=== PATIENT | male | born 1960 | race African-American/Black ===

== ENCOUNTER 2016-09-14 11:45 | Inpatient (IN) | payer OTHER ==
[2016-09-14 13:19] VITALS: BMI 24.5
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
[2016-09-14] MEDS ORDERED: MAGNESIUM CITRATE 300 ML BOTTLE PO PRN (15:35)
[2016-09-14] MEDS ORDERED: P-EPHED 60MG/TRIPROLIDI 2.5MG TABLET PO PRN (15:35)
[2016-09-14] MEDS ORDERED: ACETAMINOPHEN 325 MG TABLET (FP) PO PRN (15:35)
[2016-09-14] MEDS ORDERED: NICOTINE POLACRILEX 2 MG GUM BC PRN (15:35)
[2016-09-14] MEDS ORDERED: hydrOXYzine PAMOATE 25 MG CAPSULE (FP) PO PRN (15:35)
[2016-09-14] MEDS ORDERED: MENTHOL/PHENOL 1 EACH UD MM PRN (15:35)
[2016-09-14] MEDS ORDERED: guaiFENesin/D-METHORPHAN HB 10 ML UNIT-DOSE CUPS PO PRN (15:35)
[2016-09-14] MEDS ORDERED: MAG HYDROX/AL HYDROX/SIMETH 30 ML UNIT-DOSE CUP PO PRN (15:35)
[2016-09-14] MEDS ORDERED: IBUPROFEN 400 MG TABLET (FP) PO PRN (15:35)
[2016-09-14] MEDS ORDERED: chlordiazePOXIDE HCL 25 MG CAPSULE PO PRN (15:35)
[2016-09-14] MEDS ORDERED: MAGNESIUM HYDROX 2400MG/30ML ORAL SUSPENSION 30 ML CUP PO PRN (15:35)
[2016-09-14] MEDS ORDERED: LOPERAMIDE HCL 2 MG CAPSULE PO PRN (15:35)
[2016-09-14 16:57] LABS: URINE APPEARANCE CLEAR; URINE BILIRUBIN NEGATIVE (NEGATIVE); URINE BLOOD NEGATIVE (NEGATIVE); URINE COLOR STRAW; URINE GLUCOSE (UA) NEGATIVE (NEGATIVE); URINE KETONE NEGATIVE (NEGATIVE); URINE LEUK ESTERASE NEGATIVE (NEGATIVE); URINE NITRITE NEGATIVE (NEGATIVE); URINE PROTEIN NEGATIVE (NEGATIVE); URINE UROBILINOGEN NEGATIVE E.U./dl (0.2-1.0)
[2016-09-14] MEDS: chlordiazePOXIDE HCL 25 MG CAPSULE PO SCH ×2 (17:02→22:13)
[2016-09-14] MEDS: NICOTINE 14 MG/24 HOURS TOPICAL PATCH TD SCH (17:02)
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
[2016-09-14] MEDS ORDERED: cloNIDine HCL 0.1 MG TABLET PO PRN (17:18)
[2016-09-14 17:42] LABS: ALBUMIN 4.5 g/dl (3.4-5.0); ANION GAP 9 (8-16); CALCIUM 9.1 mg/dL (8.5-10.1); CO2 27 mmol/L (21-32); GLUCOSE,RANDOM 88 mg/dL (74-106)
[2016-09-14 17:47] LABS: ALK PHOS 105 U/L (45-117); BILIRUBIN,TOTAL 0.3 mg/dL (0.2-1.0); COCKROFT - GAULT 96.53; CREATININE 1.1 mg/dL (0.7-1.3); SGOT/AST 21 U/L (15-37); SGPT/ALT 21 U/L (12-78); TOT PROT 7.7 g/dl (6.4-8.2)
[2016-09-14 18:41] LABS: MCH 31.4 pg (25.7-33.7); MCHC 32.8 g/dl (32.0-35.9); MEAN CELL VOLUME 95.8 fl (80-96); MEAN PLT VOLUME 8.5 fl (7.5-11.1); PLATELET COUNT 313 K/MM3 (134-434); RDW 15.1 % (11.9-15.9); WHITE BLOOD COUNT 10.4 K/mm3 (4.0-10.0)
[2016-09-14] MEDS: GABAPENTIN 300 MG CAPSULE (FP) PO SCH (22:13)
[2016-09-14] MEDS: NAPROXEN 500 MG TABLET (FP) PO SCH (22:13)
[2016-09-14] MEDS: QUEtiapine FUMARATE 100 MG TABLET (FP) PO SCH (22:13)
[2016-09-14] MEDS: diphenhydrAMINE HCL 50 MG CAPSULE PO PRN (22:13)
[2016-09-14] MEDS: THIAMINE HCL 100 MG TABLET (FP) PO SCH (22:13)
[2016-09-15] MEDS: chlordiazePOXIDE HCL 25 MG CAPSULE PO SCH ×4 (05:53→22:14)
--- NOTE | 2016-09-15 10:11 | PN ---
S CIWA - CIWA Score Nausea/Vomitin-No Nausea/No Vomiting Muscle Tremors: 4-Moderate,w/Arms Extend Anxiety: 4-Mod. Anxious/Guarded Agitation: 3 Paroxysmal Sweats: 3 Orientation: 0-Oriented Tacttile Disturbances: 0-None Auditory Disturbances: 0-None Visual Disturbances: 0-None Headache: 0-None Present CIWA-Ar Total Score: 14 BHS Progress Note (SOAP) Subjective: Anxiety,tremors,sweating,interrupted sleep,restless. Objective: 09/15/16 10:10 Vital Signs - 8 hr 09/15/16 09/15/16 09/15/16 03:24 06:11 09:36 Temperature 96.0 F L 98.4 F Pulse Rate 40 L 59 L Respiratory 18 18 18 Rate Blood Pressure 133/76 137/80 Laboratory Tests 09/14/16 09/14/16 09/14/16 14:00 14:00 14:00 WBC 10.4 H D RBC 5.16 Hgb 16.2 Hct 49.5 H MCV 95.8 MCHC 32.8 RDW 15.1 Plt Count 313 D MPV 8.5 Sodium 140 Potassium 4.6 D Chloride 104 Carbon Dioxide 27 Anion Gap 9 BUN 13 D Creatinine 1.1 Creat Clearance w eGFR > 60 Random Glucose 88 D Calcium 9.1 Total Bilirubin 0.3 D AST 21 D ALT 21 Alkaline Phosphatase 105 Total Protein 7.7 Albumin 4.5 Urine Color Straw Urine Appearance Clear Urine pH 6.0 Ur Specific [place] 1.013 Urine Protein Negative Urine Glucose (UA) Negative Urine Ketones Negative Urine Blood Negative Urine Nitrite Negative Urine Bilirubin Negative Urine Urobilinogen Negative Ur Leukocyte Esterase Negative labs noted Assessment: 09/15/16 10:11 Withdrawal sx. Plan: Continue detox
[2016-09-15] MEDS: GABAPENTIN 300 MG CAPSULE (FP) PO SCH ×2 (10:23→22:14)
[2016-09-15] MEDS: PRENATAL VITAMINS W/ FOLIC ACID TABLET (FP) PO SCH (10:23)
[2016-09-15] MEDS: NAPROXEN 500 MG TABLET (FP) PO SCH ×2 (10:24→22:14)
[2016-09-15] MEDS: NICOTINE 14 MG/24 HOURS TOPICAL PATCH TD SCH (10:26)
[2016-09-15 11:15] LABS: HIV 1 & 2 AB NEGATIVE; HIV 1 AGp24 NEGATIVE
[2016-09-15] MEDS: QUEtiapine FUMARATE 100 MG TABLET (FP) PO SCH (22:14)
[2016-09-15] MEDS: THIAMINE HCL 100 MG TABLET (FP) PO SCH (22:14)
[2016-09-15] MEDS: diphenhydrAMINE HCL 50 MG CAPSULE PO PRN (22:14)
--- NOTE | 2016-09-15 23:08 | EKG ---
Test Reason : Blood Pressure : / mmHG Vent. Rate : 053 BPM Atrial Rate : 053 BPM P-R Int : 158 ms QRS Dur : 086 ms QT Int : 442 ms P-R-T Axes : 071 039 019 degrees QTc Int : 414 ms SINUS BRADYCARDIA POSSIBLE LEFT ATRIAL ENLARGEMENT LEFT VENTRICULAR HYPERTROPHY ABNORMAL ECG NO PREVIOUS ECGS AVAILABLE Confirmed by DIANE GOMES, APOORVA ([id number]) on 09/15/2016 11:07:59 PM Referred By: Chris Wong Confirmed By:APOORVA CONTRERAS MD
[2016-09-16] MEDS: chlordiazePOXIDE HCL 25 MG CAPSULE PO SCH ×2 (05:51→10:20)
[2016-09-16] MEDS: NICOTINE 14 MG/24 HOURS TOPICAL PATCH TD SCH (10:20)
[2016-09-16] MEDS: PRENATAL VITAMINS W/ FOLIC ACID TABLET (FP) PO SCH (10:20)
[2016-09-16] MEDS: NAPROXEN 500 MG TABLET (FP) PO SCH ×2 (10:20→22:13)
[2016-09-16] MEDS: GABAPENTIN 300 MG CAPSULE (FP) PO SCH ×2 (10:20→22:13)
--- NOTE | 2016-09-16 14:33 | PN ---
[facility] CIWA - CIWA Score Nausea/Vomitin-No Nausea/No Vomiting Muscle Tremors: 3 Anxiety: 3 Agitation: 4-Moderately Restless Paroxysmal Sweats: 3 Orientation: 0-Oriented Tacttile Disturbances: 0-None Auditory Disturbances: 0-None Visual Disturbances: 0-None Headache: 0-None Present CIWA-Ar Total Score: 13 BHS Progress Note (SOAP) Subjective: Anxiety,tremors,sweating,interrupted sleep,restless. Objective: 09/16/16 14:32 Vital Signs - 8 hr 09/16/16 09/16/16 09/16/16 06:34 09:18 13:19 Temperature 95.7 F L 98.6 F 97.1 F L Pulse Rate 49 L 80 95 H Respiratory 18 20 20 Rate Blood Pressure 142/96 139/92 177/91 09/16/16 13:22 Temperature Pulse Rate Respiratory Rate Blood Pressure 151/89 Laboratory Last Values WBC 10.4 K/mm3 (4.0-10.0) H D 09/14/16 14:00 RBC 5.16 M/mm3 (4.00-5.60) 09/14/16 14:00 Hgb 16.2 GM/dL (11.7-16.9) 09/14/16 14:00 Hct 49.5 % (35.4-49) H 09/14/16 14:00 MCV 95.8 fl (80-96) 09/14/16 14:00 MCHC 32.8 g/dl (32.0-35.9) 09/14/16 14:00 RDW 15.1 % (11.9-15.9) 09/14/16 14:00 Plt Count 313 K/MM3 (134-434) D 09/14/16 14:00 MPV 8.5 fl (7.5-11.1) 09/14/16 14:00 Sodium 140 mmol/L (136-145) 09/14/16 14:00 Potassium 4.6 mmol/L (3.5-5.1) D 09/14/16 14:00 Chloride 104 mmol/L (98-107) 09/14/16 14:00 Carbon Dioxide 27 mmol/L (21-32) 09/14/16 14:00 Anion Gap 9 (8-16) 09/14/16 14:00 BUN 13 mg/dL (7-18) D 09/14/16 14:00 Creatinine 1.1 mg/dL (0.7-1.3) 09/14/16 14:00 Creat Clearance w eGFR > 60 (>60) 09/14/16 14:00 Random Glucose 88 mg/dL (74-106) D 09/14/16 14:00 Calcium 9.1 mg/dL (8.5-10.1) 09/14/16 14:00 Total Bilirubin 0.3 mg/dL (0.2-1.0) D 09/14/16 14:00 AST 21 U/L (15-37) D 09/14/16 14:00 ALT 21 U/L (12-78) 09/14/16 14:00 Alkaline Phosphatase 105 U/L (45-117) 09/14/16 14:00 Total Protein 7.7 g/dl (6.4-8.2) 09/14/16 14:00 Albumin 4.5 g/dl (3.4-5.0) 09/14/16 14:00 Urine Color Straw 09/14/16 14:00 Urine Appearance Clear 09/14/16 14:00 Urine pH 6.0 (5.0-8.0) 09/14/16 14:00 Ur Specific [place] 1.013 (1.001-1.035) 09/14/16 14:00 Urine Protein Negative (NEGATIVE) 09/14/16 14:00 Urine Glucose (UA) Negative (NEGATIVE) 09/14/16 14:00 Urine Ketones Negative (NEGATIVE) 09/14/16 14:00 Urine Blood Negative (NEGATIVE) 09/14/16 14:00 Urine Nitrite Negative (NEGATIVE) 09/14/16 14:00 Urine Bilirubin Negative (NEGATIVE) 09/14/16 14:00 Urine Urobilinogen Negative E.U./dl (0.2-1.0) 09/14/16 14:00 Ur Leukocyte Esterase Negative (NEGATIVE) 09/14/16 14:00 RPR Titer Nonreactive (NONREACTIVE) 09/14/16 14:00 HIV 1&2 Antibody Screen Negative 09/14/16 06:00 HIV P24 Antigen Negative 09/14/16 06:00 labs noted Assessment: 09/16/16 14:33 Withdrawal sx. Plan: Continue detox
[2016-09-16] MEDS: chlordiazePOXIDE 5 MG CAPSULE PO SCH ×2 (17:15→22:13)
[2016-09-16] MEDS: THIAMINE HCL 100 MG TABLET (FP) PO SCH (22:12)
[2016-09-16] MEDS: QUEtiapine FUMARATE 100 MG TABLET (FP) PO SCH (22:13)
[2016-09-16] MEDS: diphenhydrAMINE HCL 50 MG CAPSULE PO PRN (22:13)
[2016-09-17] MEDS: chlordiazePOXIDE 5 MG CAPSULE PO SCH ×2 (05:31→10:24)
[2016-09-17] MEDS: PRENATAL VITAMINS W/ FOLIC ACID TABLET (FP) PO SCH (10:23)
[2016-09-17] MEDS: NAPROXEN 500 MG TABLET (FP) PO SCH ×2 (10:24→22:23)
[2016-09-17] MEDS: NICOTINE 14 MG/24 HOURS TOPICAL PATCH TD SCH (10:24)
[2016-09-17] MEDS: GABAPENTIN 300 MG CAPSULE (FP) PO SCH ×2 (10:24→22:23)
--- NOTE | 2016-09-17 11:07 | PN ---
BHS Progress Note (SOAP) Subjective: Sweating,interrupted sleep,restless. Objective: 09/17/16 11:05 Vital Signs - 8 hr 09/17/16 09/17/16 03:23 06:19 Temperature 95.9 F L Pulse Rate 68 Respiratory 18 16 Rate Blood Pressure 93/59 Laboratory Tests 09/14/16 09/14/16 09/14/16 06:00 14:00 14:00 WBC 10.4 H D RBC 5.16 Hgb 16.2 Hct 49.5 H MCV 95.8 MCHC 32.8 RDW 15.1 Plt Count 313 D MPV 8.5 Sodium 140 Potassium 4.6 D Chloride 104 Carbon Dioxide 27 Anion Gap 9 BUN 13 D Creatinine 1.1 Creat Clearance w eGFR > 60 Random Glucose 88 D Calcium 9.1 Total Bilirubin 0.3 D AST 21 D ALT 21 Alkaline Phosphatase 105 Total Protein 7.7 Albumin 4.5 Urine Color Urine Appearance Urine pH Ur Specific [place] Urine Protein Urine Glucose (UA) Urine Ketones Urine Blood Urine Nitrite Urine Bilirubin Urine Urobilinogen Ur Leukocyte Esterase RPR Titer HIV 1&2 Antibody Screen Negative HIV P24 Antigen Negative 09/14/16 09/14/16 14:00 14:00 WBC RBC Hgb Hct MCV MCHC RDW Plt Count MPV Sodium Potassium Chloride Carbon Dioxide Anion Gap BUN Creatinine Creat Clearance w eGFR Random Glucose Calcium Total Bilirubin AST ALT Alkaline Phosphatase Total Protein Albumin Urine Color Straw Urine Appearance Clear Urine pH 6.0 Ur Specific [place] 1.013 Urine Protein Negative Urine Glucose (UA) Negative Urine Ketones Negative Urine Blood Negative Urine Nitrite Negative Urine Bilirubin Negative Urine Urobilinogen Negative Ur Leukocyte Esterase Negative RPR Titer Nonreactive HIV 1&2 Antibody Screen HIV P24 Antigen labs noted Assessment: 09/17/16 11:06 Withdrawal sx. Plan: Continue detox
[2016-09-17] MEDS: chlordiazePOXIDE HCL 10 MG CAPSULE PO SCH ×2 (17:19→22:23)
[2016-09-17] MEDS: THIAMINE HCL 100 MG TABLET (FP) PO SCH (22:23)
[2016-09-17] MEDS: diphenhydrAMINE HCL 50 MG CAPSULE PO PRN (22:23)
[2016-09-17] MEDS: QUEtiapine FUMARATE 100 MG TABLET (FP) PO SCH (22:23)
[2016-09-18] MEDS: chlordiazePOXIDE HCL 10 MG CAPSULE PO SCH ×2 (05:30→10:59)
[2016-09-18] MEDS: NAPROXEN 500 MG TABLET (FP) PO SCH (09:07)
[2016-09-18] MEDS: GABAPENTIN 300 MG CAPSULE (FP) PO SCH (09:07)
[2016-09-18 10:32] VITALS: BP 176/110; PULSE 56; TEMP 96
[2016-09-18] MEDS: NICOTINE 14 MG/24 HOURS TOPICAL PATCH TD SCH (10:59)
[2016-09-18] MEDS: PRENATAL VITAMINS W/ FOLIC ACID TABLET (FP) PO SCH (10:59)
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
== END 2016-09-18 11:24 | disposition other institution (70) | DRG 774 ==
LOC: YASAS 11:45 → Y3N 14:58
PROVIDERS: ADMIT Internal Medicine; ATTEND Internal Medicine
PROC: HZ2ZZZZ Detoxification Services for Substance Abuse Treatment (ICD-10-PCS; principal; 2016-09-18)
DX: F10.230 Alcohol dependence with withdrawal, uncomplicated (principal); F14.20 Cocaine dependence, uncomplicated; F12.20 Cannabis dependence, uncomplicated; F17.213 Nicotine dependence, cigarettes, with withdrawal; M54.5 Low back pain; G89.29 Other chronic pain; R76.11 Nonspecific reaction to tuberculin skin test without active tuberculosis; G47.00 Insomnia, unspecified; Z87.828 Personal history of other (healed) physical injury and trauma
CPT/HCPCS: 36415; 71020-TC; 80053; 81003; 85027; 86593; 87389; 93005; 93010

== ENCOUNTER 2016-09-18 11:28 | Inpatient (IN) | payer OTHER ==
[2016-09-18] MEDS ORDERED: MAGNESIUM CITRATE 300 ML BOTTLE PO PRN (12:15)
[2016-09-18] MEDS ORDERED: hydrOXYzine PAMOATE 50 MG CAPSULE (FP) PO PRN (12:15)
[2016-09-18] MEDS ORDERED: MENTHOL/PHENOL 1 EACH UD MM PRN (12:15)
[2016-09-18] MEDS ORDERED: guaiFENesin/D-METHORPHAN HB 10 ML UNIT-DOSE CUPS PO PRN (12:15)
[2016-09-18] MEDS ORDERED: LOPERAMIDE HCL 2 MG CAPSULE PO PRN (12:15)
[2016-09-18] MEDS ORDERED: MAG HYDROX/AL HYDROX/SIMETH 30 ML UNIT-DOSE CUP PO PRN (12:15)
[2016-09-18] MEDS ORDERED: P-EPHED 60MG/TRIPROLIDI 2.5MG TABLET PO PRN (12:15)
[2016-09-18] MEDS ORDERED: MAGNESIUM HYDROX 2400MG/30ML ORAL SUSPENSION 30 ML CUP PO PRN (12:15)
--- NOTE | 2016-09-18 12:19 | HP ---
[facility] Rehab Assess/Revision - Admission History Ad[facility]hab [facility] Date of Admission to Rehab: 09/18/16 - Findings Detox History & Physical reviewed: Yes Concur with findings: Yes Comments/Additional Findings: for rehab as protocol
[2016-09-18 12:27] VITALS: BMI 25.6
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
[2016-09-18] MEDS ORDERED: cloNIDine HCL 0.1 MG TABLET PO ONE (20:52)
[2016-09-18] MEDS: QUEtiapine FUMARATE 100 MG TABLET (FP) PO SCH (21:36)
[2016-09-18] MEDS: GABAPENTIN 300 MG CAPSULE (FP) PO SCH (21:36)
[2016-09-18] MEDS: THIAMINE HCL 100 MG TABLET (FP) PO SCH (21:37)
[2016-09-18] MEDS: diphenhydrAMINE HCL 50 MG CAPSULE PO PRN (21:37)
[2016-09-19] MEDS: GABAPENTIN 300 MG CAPSULE (FP) PO SCH ×2 (10:21→21:57)
[2016-09-19] MEDS: PRENATAL VITAMINS W/ FOLIC ACID TABLET (FP) PO SCH (10:21)
[2016-09-19] MEDS: THIAMINE HCL 100 MG TABLET (FP) PO SCH (21:56)
[2016-09-19] MEDS: QUEtiapine FUMARATE 100 MG TABLET (FP) PO SCH (21:57)
[2016-09-19] MEDS: diphenhydrAMINE HCL 50 MG CAPSULE PO PRN (21:57)
[2016-09-20] MEDS: PRENATAL VITAMINS W/ FOLIC ACID TABLET (FP) PO SCH (09:58)
[2016-09-20] MEDS: GABAPENTIN 300 MG CAPSULE (FP) PO SCH ×2 (09:59→21:54)
[2016-09-20] MEDS: QUEtiapine FUMARATE 100 MG TABLET (FP) PO SCH (21:54)
[2016-09-20] MEDS: THIAMINE HCL 100 MG TABLET (FP) PO SCH (21:54)
[2016-09-20] MEDS: diphenhydrAMINE HCL 50 MG CAPSULE PO PRN (21:55)
[2016-09-21] MEDS: GABAPENTIN 300 MG CAPSULE (FP) PO SCH ×2 (10:15→21:34)
[2016-09-21] MEDS: PRENATAL VITAMINS W/ FOLIC ACID TABLET (FP) PO SCH (10:15)
[2016-09-21] MEDS: THIAMINE HCL 100 MG TABLET (FP) PO SCH (21:34)
[2016-09-21] MEDS: QUEtiapine FUMARATE 100 MG TABLET (FP) PO SCH (21:34)
[2016-09-21] MEDS: diphenhydrAMINE HCL 50 MG CAPSULE PO PRN (21:35)
[2016-09-21] MEDS ORDERED: cloNIDine HCL 0.1 MG TABLET PO PRN (21:40)
[2016-09-22] MEDS: GABAPENTIN 300 MG CAPSULE (FP) PO SCH ×2 (10:07→22:01)
[2016-09-22] MEDS: PRENATAL VITAMINS W/ FOLIC ACID TABLET (FP) PO SCH (10:07)
[2016-09-22] MEDS: diphenhydrAMINE HCL 50 MG CAPSULE PO PRN (22:01)
[2016-09-22] MEDS: QUEtiapine FUMARATE 100 MG TABLET (FP) PO SCH (22:01)
[2016-09-22] MEDS: THIAMINE HCL 100 MG TABLET (FP) PO SCH (22:01)
[2016-09-23] MEDS: PRENATAL VITAMINS W/ FOLIC ACID TABLET (FP) PO SCH (09:58)
[2016-09-23] MEDS: GABAPENTIN 300 MG CAPSULE (FP) PO SCH ×2 (09:58→21:57)
[2016-09-23] MEDS: THIAMINE HCL 100 MG TABLET (FP) PO SCH (21:57)
[2016-09-23] MEDS: QUEtiapine FUMARATE 100 MG TABLET (FP) PO SCH (21:57)
[2016-09-23] MEDS: diphenhydrAMINE HCL 50 MG CAPSULE PO PRN (21:58)
[2016-09-23] MEDS ORDERED: PT OWN MED DRAWER 7, Y5N ONE (23:57)
[2016-09-24] MEDS: IBUPROFEN 400 MG TABLET (FP) PO PRN (06:50)
[2016-09-24] MEDS: GABAPENTIN 300 MG CAPSULE (FP) PO SCH ×2 (10:01→21:37)
[2016-09-24] MEDS: PRENATAL VITAMINS W/ FOLIC ACID TABLET (FP) PO SCH (10:01)
[2016-09-24] MEDS: diphenhydrAMINE HCL 50 MG CAPSULE PO PRN (21:37)
[2016-09-24] MEDS: THIAMINE HCL 100 MG TABLET (FP) PO SCH (21:37)
[2016-09-24] MEDS: QUEtiapine FUMARATE 100 MG TABLET (FP) PO SCH (21:37)
[2016-09-25] MEDS: IBUPROFEN 400 MG TABLET (FP) PO PRN ×2 (05:59→20:26)
[2016-09-25] MEDS: GABAPENTIN 300 MG CAPSULE (FP) PO SCH ×2 (10:32→21:55)
[2016-09-25] MEDS: PRENATAL VITAMINS W/ FOLIC ACID TABLET (FP) PO SCH (10:32)
[2016-09-25] MEDS: THIAMINE HCL 100 MG TABLET (FP) PO SCH (21:54)
[2016-09-25] MEDS: QUEtiapine FUMARATE 100 MG TABLET (FP) PO SCH (21:54)
[2016-09-25] MEDS: diphenhydrAMINE HCL 50 MG CAPSULE PO PRN (21:56)
[2016-09-25] MEDS: ACETAMINOPHEN 325 MG TABLET (FP) PO PRN (21:56)
[2016-09-26] MEDS: IBUPROFEN 400 MG TABLET (FP) PO PRN ×2 (10:16→21:48)
[2016-09-26] MEDS: GABAPENTIN 300 MG CAPSULE (FP) PO SCH ×2 (10:16→21:48)
[2016-09-26] MEDS: PRENATAL VITAMINS W/ FOLIC ACID TABLET (FP) PO SCH (10:16)
[2016-09-26] MEDS: ACETAMINOPHEN 325 MG TABLET (FP) PO PRN (14:58)
[2016-09-26] MEDS: diphenhydrAMINE HCL 50 MG CAPSULE PO PRN (21:48)
[2016-09-26] MEDS: THIAMINE HCL 100 MG TABLET (FP) PO SCH (21:48)
[2016-09-26] MEDS: QUEtiapine FUMARATE 100 MG TABLET (FP) PO SCH (21:48)
[2016-09-27] MEDS: IBUPROFEN 400 MG TABLET (FP) PO PRN (10:11)
[2016-09-27] MEDS: PRENATAL VITAMINS W/ FOLIC ACID TABLET (FP) PO SCH (10:11)
[2016-09-27] MEDS: GABAPENTIN 300 MG CAPSULE (FP) PO SCH ×2 (10:12→21:25)
[2016-09-27] MEDS ORDERED: PT OWN MED DRAWER 7, Y5N ONE ×2 (14:43→15:47)
[2016-09-27] MEDS: diphenhydrAMINE HCL 50 MG CAPSULE PO PRN (21:25)
[2016-09-27] MEDS: QUEtiapine FUMARATE 100 MG TABLET (FP) PO SCH (21:25)
[2016-09-27] MEDS: THIAMINE HCL 100 MG TABLET (FP) PO SCH (21:25)
[2016-09-27] MEDS: ACETAMINOPHEN 325 MG TABLET (FP) PO PRN (21:26)
[2016-09-28] MEDS: PRENATAL VITAMINS W/ FOLIC ACID TABLET (FP) PO SCH (10:08)
[2016-09-28] MEDS: IBUPROFEN 400 MG TABLET (FP) PO PRN (10:08)
[2016-09-28] MEDS: GABAPENTIN 300 MG CAPSULE (FP) PO SCH ×2 (10:09→21:28)
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
[2016-09-28] MEDS: THIAMINE HCL 100 MG TABLET (FP) PO SCH (21:28)
[2016-09-28] MEDS: diphenhydrAMINE HCL 50 MG CAPSULE PO PRN (21:28)
[2016-09-28] MEDS: QUEtiapine FUMARATE 100 MG TABLET (FP) PO SCH (21:28)
[2016-09-28] MEDS: traZODone HCL 50 MG TABLET (FP) PO SCH (21:30)
[2016-09-29] MEDS: PRENATAL VITAMINS W/ FOLIC ACID TABLET (FP) PO SCH (10:14)
[2016-09-29] MEDS: GABAPENTIN 300 MG CAPSULE (FP) PO SCH ×2 (10:14→22:00)
[2016-09-29] MEDS: IBUPROFEN 400 MG TABLET (FP) PO PRN (10:14)
[2016-09-29] MEDS: THIAMINE HCL 100 MG TABLET (FP) PO SCH (21:59)
[2016-09-29] MEDS: QUEtiapine FUMARATE 100 MG TABLET (FP) PO SCH (21:59)
[2016-09-29] MEDS: traZODone HCL 50 MG TABLET (FP) PO SCH (21:59)
[2016-09-29] MEDS: diphenhydrAMINE HCL 50 MG CAPSULE PO PRN (21:59)
[2016-09-30] MEDS: PRENATAL VITAMINS W/ FOLIC ACID TABLET (FP) PO SCH (10:23)
[2016-09-30] MEDS: GABAPENTIN 300 MG CAPSULE (FP) PO SCH ×2 (10:23→21:59)
[2016-09-30] MEDS: diphenhydrAMINE HCL 50 MG CAPSULE PO PRN (21:58)
[2016-09-30] MEDS: traZODone HCL 50 MG TABLET (FP) PO SCH (21:58)
[2016-09-30] MEDS: THIAMINE HCL 100 MG TABLET (FP) PO SCH (21:58)
[2016-09-30] MEDS: QUEtiapine FUMARATE 100 MG TABLET (FP) PO SCH (21:58)
[2016-10-01] MEDS: GABAPENTIN 300 MG CAPSULE (FP) PO SCH ×2 (10:08→21:20)
[2016-10-01] MEDS: PRENATAL VITAMINS W/ FOLIC ACID TABLET (FP) PO SCH (10:08)
[2016-10-01] MEDS: IBUPROFEN 400 MG TABLET (FP) PO PRN (11:32)
[2016-10-01] MEDS: QUEtiapine FUMARATE 100 MG TABLET (FP) PO SCH (21:19)
[2016-10-01] MEDS: traZODone HCL 50 MG TABLET (FP) PO SCH (21:19)
[2016-10-01] MEDS: THIAMINE HCL 100 MG TABLET (FP) PO SCH (21:19)
[2016-10-01] MEDS: diphenhydrAMINE HCL 50 MG CAPSULE PO PRN (21:20)
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
[2016-10-02 06:56] VITALS: BP 140/86; PULSE 60; TEMP 98.4
[2016-10-02] MEDS: GABAPENTIN 300 MG CAPSULE (FP) PO SCH (10:26)
[2016-10-02] MEDS: PRENATAL VITAMINS W/ FOLIC ACID TABLET (FP) PO SCH (10:26)
== END 2016-10-02 10:30 | disposition home or self-care (01) | DRG 772 ==
LOC: YASAS 11:28 → Y3W 11:29
PROVIDERS: ADMIT Psychiatry & Neurology Psychiatry; ATTEND Psychiatry & Neurology Psychiatry
PROC: HZ42ZZZ Group Counseling for Substance Abuse Treatment, Cognitive-Behavioral (ICD-10-PCS; principal; 2016-10-02)
DX: F10.230 Alcohol dependence with withdrawal, uncomplicated (principal); F14.20 Cocaine dependence, uncomplicated; F12.20 Cannabis dependence, uncomplicated; F17.210 Nicotine dependence, cigarettes, uncomplicated; F43.10 Post-traumatic stress disorder, unspecified; M54.5 Low back pain; G89.29 Other chronic pain; R76.11 Nonspecific reaction to tuberculin skin test without active tuberculosis

== ENCOUNTER 2018-10-20 09:48 | Inpatient (IN) | payer OTHER | END 2018-11-03 10:40 | disposition home or self-care (01) | LOC: YASAS 09:48 → Y5N 12:54 ==

== ENCOUNTER 2020-01-02 13:06 | Inpatient (IN) | payer OTHER ==
--- NOTE | 2020-01-02 14:24 | BHS.RME ---
Substance Use & Tx History - Substance Use History Alcohol Substance amount: 4-5 40 0z beers Frequency of use: Daily Substance route: Oral Date of Last Use: 01/02/20 Marijuana/Hashish Substance amount: 2 blunts Frequency of use: Daily Substance route: Smoking Date of Last Use: 01/01/20 Nicotine Substance amount: 1-2 ciggs Frequency of use: Daily Substance route: Smoking Date of Last Use: 01/02/20 Physical/Psych/Mental Status - Behavior General Behavior: Increased activity (restlessness, agitation) Eye Contact: Normal - Cooperativeness Cooperativeness: Cooperative - Thinking Thought Processes: Tight, Logical, Goal Directed - Physical Health Problems Is patient presently having any pain?: No Does patient presently have any injuries (include location): No Does patient currently have a fever: No Is patient : No CIWA Nausea/Vomitin-Mild Nausea/No Vomiting Muscle Tremors: 1-None Visible, but [place] Anxiety: 5 Agitation: 4-Moderately Restless Paroxysmal Sweats: 1-Minimal Palms Moist Orientation: 0-Oriented Tacttile Disturbances: 0-None Auditory Disturbances: 0-None Visual Disturbances: 0-None Headache: 0-None Present CIWA-Ar Total Score: 12
[2020-01-02 14:38] VITALS: BMI 21.6
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
[2020-01-02] MEDS ORDERED: MENTHOL/PHENOL 1 EACH UD MM PRN (15:10)
[2020-01-02] MEDS ORDERED: MAG HYDROX/AL HYDROX/SIMETH 30 ML UNIT-DOSE CUP PO PRN (15:10)
[2020-01-02] MEDS ORDERED: IBUPROFEN 400 MG TABLET (FP) PO PRN (15:10)
[2020-01-02] MEDS ORDERED: MAGNESIUM CITRATE 300 ML BOTTLE PO PRN (15:10)
[2020-01-02] MEDS ORDERED: chlordiazePOXIDE HCL 25 MG CAPSULE PO PRN (15:10)
[2020-01-02] MEDS ORDERED: MAGNESIUM HYDROX 2400MG/30ML ORAL SUSPENSION 30 ML CUP PO PRN (15:10)
[2020-01-02] MEDS ORDERED: NICOTINE POLACRILEX 2 MG GUM BUC PRN (15:10)
[2020-01-02] MEDS ORDERED: BISMUTH SUBSALICYLATE 524 MG/30 ML UD PO PRN (15:10)
[2020-01-02] MEDS ORDERED: ACETAMINOPHEN 325 MG TABLET (FP) PO PRN ×2 (15:10)
[2020-01-02] MEDS ORDERED: ONDANSETRON *ODT* 4 MG TABLET SL PRN (15:10)
[2020-01-02] MEDS ORDERED: METHOCARBAMOL 500 MG TABLET PO PRN (15:10)
[2020-01-02] MEDS: chlordiazePOXIDE HCL 25 MG CAPSULE PO SCH ×2 (18:07→22:36)
[2020-01-02] MEDS: hydrOXYzine PAMOATE 25 MG CAPSULE (FP) PO SCH ×2 (18:07→22:36)
[2020-01-02] MEDS: MELATONIN 5 MG TABLETS PO SCH (22:36)
[2020-01-02] MEDS: THIAMINE HCL 100 MG TABLET (FP) PO SCH (22:36)
[2020-01-03] MEDS: hydrOXYzine PAMOATE 25 MG CAPSULE (FP) PO SCH (05:49)
[2020-01-03] MEDS: chlordiazePOXIDE HCL 25 MG CAPSULE PO SCH ×4 (05:50→22:23)
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
[2020-01-03] MEDS: PRENATAL VITAMINS W/ FOLIC ACID TABLET (FP) PO SCH (10:34)
[2020-01-03] MEDS: NICOTINE 7 MG/24 HOURS TOPICAL PATCH TD SCH (10:34)
--- NOTE | 2020-01-03 10:50 | PN ---
Teaching Attending Note Name of Resident: Compa Hansen ATTENDING PHYSICIAN STATEMENT I saw and evaluated the patient. I reviewed the resident's note and discussed the case with the resident. I agree with the resident's findings and plan as documented. SUBJECTIVE: OBJECTIVE: ASSESSMENT AND PLAN: Agree with resident's plan with for admission to detox.
[2020-01-03 12:15] LABS: HEMATOCRIT 44.8 % (35.4-49); HEMOGLOBIN 14.9 GM/dL (11.7-16.9); MCH 31.9 pg (25.7-33.7); MCHC 33.3 g/dl (32.0-35.9); MEAN CELL VOLUME 95.6 fl (80-96); MEAN PLT VOLUME 8.5 fl (7.5-11.1); PLATELET COUNT 219 K/MM3 (134-434); RBC 4.68 M/mm3 (4.00-5.60); RDW 14.2 % (11.9-15.9); WHITE BLOOD COUNT 3.7 K/mm3 (4.0-10.0)
[2020-01-03 12:31] LABS: BILIRUBIN,TOTAL 0.6 mg/dL (0.2-1); POTASSIUM 4.1 mmol/L (3.5-5.1)
[2020-01-03 12:44] LABS: ALBUMIN 3.8 g/dl (3.4-5.0); BLOOD UREA NITROGEN 14.8 mg/dL (7-18); CALCIUM 8.8 mg/dL (8.5-10.1)
--- NOTE | 2020-01-03 13:44 | PN ---
S CIWA - CIWA Score Nausea/Vomitin-Mild Nausea/No Vomiting Muscle Tremors: 3 Anxiety: 2 Agitation: 2 Paroxysmal Sweats: 1-Minimal Palms Moist Orientation: 0-Oriented Tacttile Disturbances: 1-Very Mild Itch/Numbness Auditory Disturbances: 0-None Visual Disturbances: 0-None Headache: 2-Mild CIWA-Ar Total Score: 12 S Progress Note (SOAP) Subjective: alert,irritable,anxious,interrupted sleep,tremor,aching pain in the body and back Objective: 01/03/20 13:42 Vital Signs Temperature 97.5 F L 01/03/20 08:54 Pulse Rate 56 L 01/03/20 08:54 Respiratory Rate 16 01/03/20 08:54 Blood Pressure 141/86 01/03/20 08:54 O2 Sat by Pulse Oximetry (%) 98 01/03/20 06:09 01/03/20 13:42 Laboratory Last Values WBC 3.7 K/mm3 (4.0-10.0) L 01/03/20 08:30 RBC 4.68 M/mm3 (4.00-5.60) 01/03/20 08:30 Hgb 14.9 GM/dL (11.7-16.9) 01/03/20 08:30 Hct 44.8 % (35.4-49) 01/03/20 08:30 MCV 95.6 fl (80-96) 01/03/20 08:30 MCH 31.9 pg (25.7-33.7) 01/03/20 08:30 MCHC 33.3 g/dl (32.0-35.9) 01/03/20 08:30 RDW 14.2 % (11.9-15.9) 01/03/20 08:30 Plt Count 219 K/MM3 (134-434) 01/03/20 08:30 MPV 8.5 fl (7.5-11.1) 01/03/20 08:30 Sodium 145 mmol/L (136-145) 01/03/20 08:30 Potassium 4.1 mmol/L (3.5-5.1) 01/03/20 08:30 Chloride 113 mmol/L (98-107) H 01/03/20 08:30 Carbon Dioxide 25 mmol/L (21-32) 01/03/20 08:30 Anion Gap 7 MMOL/L (8-16) L 01/03/20 08:30 BUN 14.8 mg/dL (7-18) 01/03/20 08:30 Creatinine 1.0 mg/dL (0.55-1.3) 01/03/20 08:30 Est GFR (CKD-EPI)AfAm 96.40 01/03/20 08:30 Est GFR (CKD-EPI)NonAf 83.18 01/03/20 08:30 Random Glucose 124 mg/dL (74-106) H 01/03/20 08:30 Calcium 8.8 mg/dL (8.5-10.1) 01/03/20 08:30 Total Bilirubin 0.6 mg/dL (0.2-1) 01/03/20 08:30 AST 20 U/L (15-37) 01/03/20 08:30 ALT 17 U/L (13-61) 01/03/20 08:30 Alkaline Phosphatase 86 U/L (45-117) 01/03/20 08:30 Total Protein 7.0 g/dl (6.4-8.2) 01/03/20 08:30 Albumin 3.8 g/dl (3.4-5.0) 01/03/20 08:30 HIV Ag/Ab Combo Qual Negative (NEGATIVE) 01/02/20 13:10 Assessment: 01/03/20 13:43 withdrawal symptom Plan: continue detox librium regimen,fasting glucose in am,intial glucose is 124,Dr Vides consultation appreciated
[2020-01-03] MEDS: IBUPROFEN 400 MG TABLET (FP) PO PRN (15:17)
--- NOTE | 2020-01-03 15:17 | PN ---
S Progress Note Note: pt states the motrin is not helping his pain, pt will have his roboxin increased to 750mg q6prn and motrin 800mg q8hrs prn.
[2020-01-03] MEDS: METHOCARBAMOL 750 MG TABLET PO PRN (17:57)
[2020-01-03] MEDS: traZODone HCL 100 MG TABLET (FP) PO SCH (22:23)
[2020-01-03] MEDS: THIAMINE HCL 100 MG TABLET (FP) PO SCH (22:23)
[2020-01-03] MEDS: MELATONIN 5 MG TABLETS PO SCH (23:16)
[2020-01-04] MEDS: chlordiazePOXIDE HCL 25 MG CAPSULE PO SCH ×4 (05:29→22:07)
--- NOTE | 2020-01-04 09:52 | PN ---
S CIWA - CIWA Score Nausea/Vomitin-No Nausea/No Vomiting Muscle Tremors: 1-None Visible, but [place] Anxiety: 1-Mildly Anxious Agitation: 1-Slight > Activity Paroxysmal Sweats: 2 Orientation: 0-Oriented Tacttile Disturbances: 0-None Auditory Disturbances: 0-None Visual Disturbances: 0-None Headache: 0-None Present CIWA-Ar Total Score: 5 BHS Progress Note (SOAP) Subjective: sweats anxiety interrupted sleep Objective: 01/04/20 13:46 Vital Signs Temperature 97.1 F L 01/04/20 08:55 Pulse Rate 65 01/04/20 08:55 Respiratory Rate 18 01/04/20 08:55 Blood Pressure 147/82 01/04/20 08:55 O2 Sat by Pulse Oximetry (%) 97 01/04/20 05:26 Laboratory Tests 01/02/20 01/02/20 01/03/20 10:00 13:10 08:30 WBC 3.7 L RBC 4.68 Hgb 14.9 Hct 44.8 MCV 95.6 MCH 31.9 MCHC 33.3 RDW 14.2 Plt Count 219 MPV 8.5 Sodium Potassium Chloride Carbon Dioxide Anion Gap BUN Creatinine Est GFR (CKD-EPI)AfAm Est GFR (CKD-EPI)NonAf Random Glucose Calcium Total Bilirubin AST ALT Alkaline Phosphatase Total Protein Albumin Syphilis Serology COVID-19 (LUC) Not detected HIV Ag/Ab Combo Qual Negative 01/03/20 01/03/20 08:30 08:30 WBC RBC Hgb Hct MCV MCH MCHC RDW Plt Count MPV Sodium 145 Potassium 4.1 Chloride 113 H Carbon Dioxide 25 Anion Gap 7 L BUN 14.8 Creatinine 1.0 Est GFR (CKD-EPI)AfAm 96.40 Est GFR (CKD-EPI)NonAf 83.18 Random Glucose 124 H Calcium 8.8 Total Bilirubin 0.6 AST 20 ALT 17 Alkaline Phosphatase 86 Total Protein 7.0 Albumin 3.8 Syphilis Serology Non-reactive COVID-19 (LUC) HIV Ag/Ab Combo Qual labs noted aaox3 ambulating no acute distress Assessment: 01/04/20 13:47 withdrawals Plan: continue detox
[2020-01-04] MEDS: PRENATAL VITAMINS W/ FOLIC ACID TABLET (FP) PO SCH (10:16)
[2020-01-04] MEDS: NICOTINE 7 MG/24 HOURS TOPICAL PATCH TD SCH (10:16)
[2020-01-04] MEDS: THIAMINE HCL 100 MG TABLET (FP) PO SCH (22:04)
[2020-01-04] MEDS: traZODone HCL 100 MG TABLET (FP) PO SCH (22:04)
[2020-01-04] MEDS: MELATONIN 5 MG TABLETS PO SCH (22:07)
[2020-01-05] MEDS ORDERED: chlordiazePOXIDE HCL 10 MG CAPSULE PO PRN
[2020-01-05] MEDS: chlordiazePOXIDE HCL 10 MG CAPSULE PO SCH ×4 (05:53→22:30)
[2020-01-05] MEDS: PRENATAL VITAMINS W/ FOLIC ACID TABLET (FP) PO SCH (10:51)
[2020-01-05] MEDS: NICOTINE 7 MG/24 HOURS TOPICAL PATCH TD SCH (10:51)
--- NOTE | 2020-01-05 11:48 | PN ---
[facility] CIWA - CIWA Score Nausea/Vomitin-Mild Nausea/No Vomiting Muscle Tremors: 2 Anxiety: 1-Mildly Anxious Agitation: 1-Slight > Activity Paroxysmal Sweats: 1-Minimal Palms Moist Orientation: 0-Oriented Tacttile Disturbances: 0-None Auditory Disturbances: 0-None Visual Disturbances: 0-None Headache: 0-None Present CIWA-Ar Total Score: 6 [facility] Progress Note (SOAP) Subjective: pt admitted for alcohol detox, no complaints today. O: Vital Signs - 24 hr 01/04/20 01/04/20 01/04/20 12:32 17:00 20:57 Temperature 97.7 F 98.2 F 97.3 F L Pulse Rate 66 64 63 Respiratory 18 18 18 Rate Blood Pressure 152/98 155/93 145/98 O2 Sat by Pulse 95 97 Oximetry (%) 01/05/20 01/05/20 05:50 06:06 Temperature 96.9 F L Pulse Rate 54 L Respiratory 18 Rate Blood Pressure 151/96 O2 Sat by Pulse 96 97 Oximetry (%) Laboratory Tests 01/02/20 01/02/20 01/03/20 10:00 13:10 08:30 WBC 3.7 L RBC 4.68 Hgb 14.9 Hct 44.8 MCV 95.6 MCH 31.9 MCHC 33.3 RDW 14.2 Plt Count 219 MPV 8.5 Sodium Potassium Chloride Carbon Dioxide Anion Gap BUN Creatinine Est GFR (CKD-EPI)AfAm Est GFR (CKD-EPI)NonAf Random Glucose Calcium Total Bilirubin AST ALT Alkaline Phosphatase Total Protein Albumin Syphilis Serology COVID-19 (LUC) Not detected HIV Ag/Ab Combo Qual Negative 01/03/20 01/03/20 08:30 08:30 WBC RBC Hgb Hct MCV MCH MCHC RDW Plt Count MPV Sodium 145 Potassium 4.1 Chloride 113 H Carbon Dioxide 25 Anion Gap 7 L BUN 14.8 Creatinine 1.0 Est GFR (CKD-EPI)AfAm 96.40 Est GFR (CKD-EPI)NonAf 83.18 Random Glucose 124 H Calcium 8.8 Total Bilirubin 0.6 AST 20 ALT 17 Alkaline Phosphatase 86 Total Protein 7.0 Albumin 3.8 Syphilis Serology Non-reactive COVID-19 (LUC) HIV Ag/Ab Combo Qual a/p: AUD- continue detox protocol. pt doing well without complaintst
[2020-01-05] MEDS: traZODone HCL 100 MG TABLET (FP) PO SCH (22:29)
[2020-01-05] MEDS: THIAMINE HCL 100 MG TABLET (FP) PO SCH (22:29)
[2020-01-05] MEDS: MELATONIN 5 MG TABLETS PO SCH (22:57)
[2020-01-06] MEDS: chlordiazePOXIDE HCL 10 MG CAPSULE PO SCH ×2 (06:40→18:00)
[2020-01-06] MEDS: NICOTINE 7 MG/24 HOURS TOPICAL PATCH TD SCH (10:48)
[2020-01-06] MEDS: PRENATAL VITAMINS W/ FOLIC ACID TABLET (FP) PO SCH (10:48)
--- NOTE | 2020-01-06 11:03 | PN ---
[facility] CIWA - CIWA Score Nausea/Vomitin-No Nausea/No Vomiting Muscle Tremors: None Anxiety: 2 Agitation: 1-Slight > Activity Paroxysmal Sweats: 1-Minimal Palms Moist Orientation: 0-Oriented Tacttile Disturbances: 0-None Auditory Disturbances: 0-None Visual Disturbances: 0-None Headache: 0-None Present CIWA-Ar Total Score: 4 [facility] Progress Note (SOAP) Subjective: Complaints of mild anxiety and sweats Objective: 01/06/20 11:01 Vital Signs 01/06/20 01/06/20 06:01 09:19 Temperature 96.9 F L 97.3 F L Pulse Rate 53 L 66 Respiratory 20 20 Rate Blood Pressure 147/85 139/78 O2 Sat by Pulse 97 97 Oximetry (%) Laboratory Last Values WBC 3.7 K/mm3 (4.0-10.0) L 01/03/20 08:30 RBC 4.68 M/mm3 (4.00-5.60) 01/03/20 08:30 Hgb 14.9 GM/dL (11.7-16.9) 01/03/20 08:30 Hct 44.8 % (35.4-49) 01/03/20 08:30 MCV 95.6 fl (80-96) 01/03/20 08:30 MCH 31.9 pg (25.7-33.7) 01/03/20 08:30 MCHC 33.3 g/dl (32.0-35.9) 01/03/20 08:30 RDW 14.2 % (11.9-15.9) 01/03/20 08:30 Plt Count 219 K/MM3 (134-434) 01/03/20 08:30 MPV 8.5 fl (7.5-11.1) 01/03/20 08:30 Sodium 145 mmol/L (136-145) 01/03/20 08:30 Potassium 4.1 mmol/L (3.5-5.1) 01/03/20 08:30 Chloride 113 mmol/L (98-107) H 01/03/20 08:30 Carbon Dioxide 25 mmol/L (21-32) 01/03/20 08:30 Anion Gap 7 MMOL/L (8-16) L 01/03/20 08:30 BUN 14.8 mg/dL (7-18) 01/03/20 08:30 Creatinine 1.0 mg/dL (0.55-1.3) 01/03/20 08:30 Est GFR (CKD-EPI)AfAm 96.40 01/03/20 08:30 Est GFR (CKD-EPI)NonAf 83.18 01/03/20 08:30 Random Glucose 124 mg/dL (74-106) H 01/03/20 08:30 Calcium 8.8 mg/dL (8.5-10.1) 01/03/20 08:30 Total Bilirubin 0.6 mg/dL (0.2-1) 01/03/20 08:30 AST 20 U/L (15-37) 01/03/20 08:30 ALT 17 U/L (13-61) 01/03/20 08:30 Alkaline Phosphatase 86 U/L (45-117) 01/03/20 08:30 Total Protein 7.0 g/dl (6.4-8.2) 01/03/20 08:30 Albumin 3.8 g/dl (3.4-5.0) 01/03/20 08:30 Syphilis Serology Non-reactive (NONREACTIVE) 01/03/20 08:30 COVID-19 (LUC) Not detected (Not Detected) 01/02/20 10:00 HIV Ag/Ab Combo Qual Negative (NEGATIVE) 01/02/20 13:10 Labs reviewed. Assessment: 01/06/20 11:01 Alert and oriented x 3, in no acute respiratory distress. Full ROM, ambulating in the unit without assistance. Mild withdrawal symptoms. For discharge in AM Plan: Continue detox protocol. Discharge in AM.
[2020-01-06] MEDS: IBUPROFEN 400 MG TABLET (FP) PO PRN (17:58)
[2020-01-06] MEDS: METHOCARBAMOL 750 MG TABLET PO PRN (17:58)
[2020-01-06] MEDS: traZODone HCL 100 MG TABLET (FP) PO SCH (22:11)
[2020-01-06] MEDS: THIAMINE HCL 100 MG TABLET (FP) PO SCH (22:11)
[2020-01-06] MEDS: MELATONIN 5 MG TABLETS PO SCH (22:11)
[2020-01-07] MEDS ORDERED: chlordiazePOXIDE HCL 10 MG CAPSULE PO ONE (05:00)
[2020-01-07 09:53] VITALS: BP 152/88; PULSE 68; TEMP 97.1
[2020-01-07] MEDS: NICOTINE 7 MG/24 HOURS TOPICAL PATCH TD SCH (10:09)
[2020-01-07] MEDS: PRENATAL VITAMINS W/ FOLIC ACID TABLET (FP) PO SCH (10:10)
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
== END 2020-01-07 11:50 | disposition other institution (70) | DRG 774 ==
LOC: YASAS 13:06 → Y6N 14:42
PROVIDERS: ADMIT Allergy & Immunology; ATTEND Allergy & Immunology
PROC: HZ2ZZZZ Detoxification Services for Substance Abuse Treatment (ICD-10-PCS; principal; 2020-01-02)
DX: F10.230 Alcohol dependence with withdrawal, uncomplicated (principal); F14.20 Cocaine dependence, uncomplicated; F12.20 Cannabis dependence, uncomplicated; F17.210 Nicotine dependence, cigarettes, uncomplicated; F19.280 Other psychoactive substance dependence with psychoactive substance-induced anxiety disorder; F19.282 Other psychoactive substance dependence with psychoactive substance-induced sleep disorder; F43.10 Post-traumatic stress disorder, unspecified; J45.909 Unspecified asthma, uncomplicated; R76.11 Nonspecific reaction to tuberculin skin test without active tuberculosis; Z87.09 Personal history of other diseases of the respiratory system; Z86.19 Personal history of other infectious and parasitic diseases; Z87.11 Personal history of peptic ulcer disease; Z87.828 Personal history of other (healed) physical injury and trauma; Z98.890 Other specified postprocedural states; Z18.89 Other specified retained foreign body fragments
CPT/HCPCS: 36415; 71046-TC-FY; 80053; 85027; 86780; 87389; U0003

== ENCOUNTER 2020-01-07 11:56 | Inpatient (IN) | payer OTHER ==
--- NOTE | 2020-01-07 12:58 | PN ---
[facility] Progress Note Note: Patient was seen by commercial underwriter on 01/03/20 while admitted to detox and he was prescribed Trazadone 200 mg/hs. Will continue Trazadone 200 mg/hs
[2020-01-07] MEDS ORDERED: guaiFENesin 200 MG/10 ML 10 ML UNIT-DOSE CUPS PO PRN (13:04)
[2020-01-07] MEDS ORDERED: MAG HYDROX/AL HYDROX/SIMETH 30 ML UNIT-DOSE CUP PO PRN (13:04)
[2020-01-07] MEDS ORDERED: P-EPHED 60MG/TRIPROLIDI 2.5MG TABLET PO PRN (13:04)
[2020-01-07] MEDS ORDERED: NICOTINE POLACRILEX 2 MG GUM BUC PRN (13:04)
[2020-01-07] MEDS ORDERED: LOPERAMIDE HCL 2 MG CAPSULE PO PRN (13:04)
[2020-01-07] MEDS ORDERED: MAGNESIUM CITRATE 300 ML BOTTLE PO PRN (13:04)
[2020-01-07] MEDS ORDERED: MAGNESIUM HYDROX 2400MG/30ML ORAL SUSPENSION 30 ML CUP PO PRN (13:04)
[2020-01-07] MEDS ORDERED: MENTHOL/PHENOL 1 EACH UD MM PRN (13:04)
--- NOTE | 2020-01-07 13:10 | HP ---
[facility] Rehab Assess/Revision - Admission History Admitted to Rehab from: [facility] [place] Date of Admission to Rehab: 01/07/2020 - Vital signs Vital Signs: Vital Signs Period Temp Pulse Resp BP Sys/Guerrero Pulse Ox Last 24 Hr 98.6 F 62 18 142/86 Vital Signs 01/07/20 12:29 Temperature 98.6 F Pulse Rate 62 Respiratory 18 Rate Blood Pressure 142/86 - Findings Detox History & Physical reviewed: Yes Concur with findings: Yes Inpatient Rehab Admission - Rehab Decision to Admit Inpatient rehab admission?: Yes - Initial Determination Are CD services needed?: Yes Free of communicable disease: Yes Not in need of hospitalization: Yes - Rehab Admission Criteria Previous failed treatment: Yes Poor recovery environment: Yes Comorbidities: Yes Lacks judgement: Yes Patient is meeting Inpatient Rehab admission criteria:: Yes
--- NOTE | 2020-01-07 14:48 | PN ---
[facility] Progress Note Note: Patient was seen by board writer on 01/03/20 while admitted to detox and he was prescribed Trazadone 200 mg/hs. Will continue Trazadone 200 mg/hs
[2020-01-07] MEDS: traZODone HCL 100 MG TABLET (FP) PO SCH (21:32)
[2020-01-07] MEDS: MELATONIN 5 MG TABLETS PO SCH (21:32)
[2020-01-07] MEDS: THIAMINE HCL 100 MG TABLET (FP) PO SCH (21:32)
[2020-01-08] MEDS: ACETAMINOPHEN 325 MG TABLET (FP) PO PRN (06:29)
[2020-01-08] MEDS: NICOTINE 7 MG/24 HOURS TOPICAL PATCH TD SCH (10:23)
[2020-01-08] MEDS: PRENATAL VITAMINS W/ FOLIC ACID TABLET (FP) PO SCH (10:23)
[2020-01-08] MEDS: METHOCARBAMOL 500 MG TABLET PO SCH ×2 (10:24→21:22)
[2020-01-08] MEDS: hydrOXYzine PAMOATE 25 MG CAPSULE (FP) PO PRN (10:24)
[2020-01-08] MEDS: MELATONIN 5 MG TABLETS PO SCH (21:22)
[2020-01-08] MEDS: THIAMINE HCL 100 MG TABLET (FP) PO SCH (21:22)
[2020-01-08] MEDS: traZODone HCL 100 MG TABLET (FP) PO SCH (21:22)
[2020-01-09] MEDS: PRENATAL VITAMINS W/ FOLIC ACID TABLET (FP) PO SCH (10:16)
[2020-01-09] MEDS: ACETAMINOPHEN 325 MG TABLET (FP) PO PRN (10:17)
[2020-01-09] MEDS: METHOCARBAMOL 500 MG TABLET PO SCH ×2 (10:17→21:29)
[2020-01-09] MEDS: hydrOXYzine PAMOATE 25 MG CAPSULE (FP) PO PRN (10:17)
[2020-01-09] MEDS: NICOTINE 7 MG/24 HOURS TOPICAL PATCH TD SCH (10:18)
[2020-01-09] MEDS: THIAMINE HCL 100 MG TABLET (FP) PO SCH (21:29)
[2020-01-09] MEDS: MELATONIN 5 MG TABLETS PO SCH (21:29)
[2020-01-09] MEDS: traZODone HCL 100 MG TABLET (FP) PO SCH (21:29)
[2020-01-10] MEDS: ACETAMINOPHEN 325 MG TABLET (FP) PO PRN (09:56)
[2020-01-10] MEDS: METHOCARBAMOL 500 MG TABLET PO SCH ×2 (09:56→21:32)
[2020-01-10] MEDS: hydrOXYzine PAMOATE 25 MG CAPSULE (FP) PO PRN (09:56)
[2020-01-10] MEDS: PRENATAL VITAMINS W/ FOLIC ACID TABLET (FP) PO SCH (09:56)
[2020-01-10] MEDS: NICOTINE 7 MG/24 HOURS TOPICAL PATCH TD SCH (09:57)
[2020-01-10] MEDS: traZODone HCL 100 MG TABLET (FP) PO SCH (21:32)
[2020-01-10] MEDS: MELATONIN 5 MG TABLETS PO SCH (21:32)
[2020-01-10] MEDS: THIAMINE HCL 100 MG TABLET (FP) PO SCH (21:32)
[2020-01-11] MEDS: NICOTINE 7 MG/24 HOURS TOPICAL PATCH TD SCH (09:52)
[2020-01-11] MEDS: METHOCARBAMOL 500 MG TABLET PO SCH ×2 (09:52→21:29)
[2020-01-11] MEDS: PRENATAL VITAMINS W/ FOLIC ACID TABLET (FP) PO SCH (09:52)
[2020-01-11] MEDS ORDERED: PT OWN MED DRAWER 7, Y5N ONE (19:55)
[2020-01-11] MEDS: THIAMINE HCL 100 MG TABLET (FP) PO SCH (21:29)
[2020-01-11] MEDS: traZODone HCL 100 MG TABLET (FP) PO SCH (21:29)
[2020-01-11] MEDS: MELATONIN 5 MG TABLETS PO SCH (21:29)
[2020-01-11] MEDS: hydrOXYzine PAMOATE 25 MG CAPSULE (FP) PO PRN (21:29)
[2020-01-12] MEDS: PRENATAL VITAMINS W/ FOLIC ACID TABLET (FP) PO SCH (09:57)
[2020-01-12] MEDS: METHOCARBAMOL 500 MG TABLET PO SCH ×2 (09:57→21:29)
[2020-01-12] MEDS: NICOTINE 7 MG/24 HOURS TOPICAL PATCH TD SCH (09:57)
[2020-01-12] MEDS: IBUPROFEN 400 MG TABLET (FP) PO PRN (09:58)
[2020-01-12] MEDS: traZODone HCL 100 MG TABLET (FP) PO SCH (21:29)
[2020-01-12] MEDS: MELATONIN 5 MG TABLETS PO SCH (21:29)
[2020-01-12] MEDS: THIAMINE HCL 100 MG TABLET (FP) PO SCH (21:29)
[2020-01-13] MEDS: PRENATAL VITAMINS W/ FOLIC ACID TABLET (FP) PO SCH (10:24)
[2020-01-13] MEDS: METHOCARBAMOL 500 MG TABLET PO SCH ×2 (10:24→21:31)
[2020-01-13] MEDS: NICOTINE 7 MG/24 HOURS TOPICAL PATCH TD SCH (10:24)
[2020-01-13] MEDS: traZODone HCL 100 MG TABLET (FP) PO SCH (21:31)
[2020-01-13] MEDS: hydrOXYzine PAMOATE 25 MG CAPSULE (FP) PO PRN (21:32)
[2020-01-13] MEDS: MELATONIN 5 MG TABLETS PO SCH (21:32)
[2020-01-13] MEDS: THIAMINE HCL 100 MG TABLET (FP) PO SCH (21:32)
[2020-01-14] MEDS: METHOCARBAMOL 500 MG TABLET PO SCH ×2 (09:47→21:04)
[2020-01-14] MEDS: PRENATAL VITAMINS W/ FOLIC ACID TABLET (FP) PO SCH (09:47)
[2020-01-14] MEDS: hydrOXYzine PAMOATE 25 MG CAPSULE (FP) PO PRN (09:48)
[2020-01-14] MEDS: NICOTINE 7 MG/24 HOURS TOPICAL PATCH TD SCH (09:48)
[2020-01-14] MEDS: IBUPROFEN 400 MG TABLET (FP) PO PRN (09:48)
--- NOTE | 2020-01-14 14:34 | PN ---
[facility] Progress Note Note: Psychiatric nurse practitioner note: Patient scheduled for discharge tomorrow (01/15/20). A 30 day prescription of Trazodone 200mg HS was electronically sent [place] [address].
[2020-01-14] MEDS: THIAMINE HCL 100 MG TABLET (FP) PO SCH (21:03)
[2020-01-14] MEDS: MELATONIN 5 MG TABLETS PO SCH (21:04)
[2020-01-14] MEDS: traZODone HCL 100 MG TABLET (FP) PO SCH (21:04)
[2020-01-15 06:55] VITALS: BP 137/69; PULSE 58; TEMP 97.1
[2020-01-15] MEDS: hydrOXYzine PAMOATE 25 MG CAPSULE (FP) PO PRN (09:27)
[2020-01-15] MEDS: PRENATAL VITAMINS W/ FOLIC ACID TABLET (FP) PO SCH (09:27)
[2020-01-15] MEDS: METHOCARBAMOL 500 MG TABLET PO SCH (09:27)
[2020-01-15] MEDS: IBUPROFEN 400 MG TABLET (FP) PO PRN (09:28)
--- NOTE | 2020-01-15 09:45 | DS ---
[facility] Rehab Discharge Summary - [facility] Rehab Discharge Summary Admission Date: 01/07/20 Discharge Date: 01/15/20 - History Present History: Alcohol dependence, Cannabis dependence, Cocaine dependence - Discharge Physical Exam Vital Signs: Vital Signs Temperature 97.1 F L 01/15/20 05:49 Pulse Rate 58 L 01/15/20 05:49 Respiratory Rate 18 01/15/20 05:49 Blood Pressure 137/69 01/15/20 05:49 O2 Sat by Pulse Oximetry (%) 96 01/15/20 05:49 ROS: denies chest pain, sob, dizziness, alcohol/cocaine cravings and shakes PE alert and oriented x 3 skin warm and dry car [id number] resp cta bl ext full rom, amb ad raj no tremors denies si/hi A/P alcohol/cocaine dependence Patient is medically stable for discharge, he is to self arrange outpatient services. Patient states" I want to follow up with my PCP first and then make arrangements for group meetings". Patient encouraged to follow up with PCP for PE and BP management. Medically advised to attend virtual group AA/NA meetings to prevent relapse. - Treatment Discharge Condition: Discharge condition good Hospital Course: Patient discharged from rehab today. He is medically stable and denies SI/HI. During course of treatment, patient attended group meetings, evaluated and treated by psych team and attended 1:1 sessions with counselor. Patient to arranged his own aftercare treatment after PE with PCP. Medically advised to follow up AA/NA to attend group meetings to prevent relapse. Ambulatory Orders traZODone HCL [Trazodone HCl] 200 mg PO HS 01/02/20 traZODone HCL [Trazodone HCl] 200 mg PO HS #60 tablet 01/14/20 - Medication Discharge Medications: Ambulatory Orders traZODone HCL [Trazodone HCl] 200 mg PO HS 01/02/20 traZODone HCL [Trazodone HCl] 200 mg PO HS #60 tablet 01/14/20 - Medication-Assisted Treatment (MAT) Medication-Assisted Treatment (MAT): No - Discharge Instructions Diet, activity, other medical instructions: Diet: reg as tolerated Activity: ad raj as tolerated Other medical instructions: f/u with pcp as recommended - Follow-up Referral Minutes to complete discharge: 30 - AMA Did Patient Leave Against Medical Advice: No
== END 2020-01-15 09:32 | disposition home or self-care (01) | DRG 772 ==
LOC: YASAS 11:56 → Y3W 11:57
PROVIDERS: ADMIT Allergy & Immunology; ATTEND Allergy & Immunology
PROC: HZ42ZZZ Group Counseling for Substance Abuse Treatment, Cognitive-Behavioral (ICD-10-PCS; principal; 2020-01-07)
DX: F10.20 Alcohol dependence, uncomplicated (principal); F14.20 Cocaine dependence, uncomplicated; F12.20 Cannabis dependence, uncomplicated; F17.210 Nicotine dependence, cigarettes, uncomplicated; Z87.828 Personal history of other (healed) physical injury and trauma

== ENCOUNTER 2021-06-25 17:48 | Inpatient (IN) | payer OTHER ==
[2021-06-25] MEDS ORDERED: NICOTINE POLACRILEX 2 MG GUM BUC PRN (22:05)
[2021-06-25] MEDS ORDERED: ACETAMINOPHEN 325 MG TABLET (FP) PO PRN ×2 (22:05)
[2021-06-25] MEDS ORDERED: BISMUTH SUBSALICYLATE 524 MG/30 ML PO PRN (22:05)
[2021-06-25] MEDS ORDERED: MAGNESIUM HYDROX 2400MG/30ML ORAL SUSPENSION 30 ML CUP PO PRN (22:05)
[2021-06-25] MEDS ORDERED: P-EPHED 60MG/TRIPROLIDI 2.5MG TABLET PO PRN (22:05)
[2021-06-25] MEDS ORDERED: IBUPROFEN 400 MG TABLET (FP) PO PRN (22:05)
[2021-06-25] MEDS ORDERED: MENTHOL/PHENOL 1 EACH UD MM PRN (22:05)
[2021-06-25] MEDS ORDERED: DICYCLOMINE HCL 10 MG CAPSULE PO PRN (22:05)
[2021-06-25] MEDS ORDERED: MAG HYDROX/AL HYDROX/SIMETH 30 ML UNIT-DOSE CUP PO PRN (22:05)
[2021-06-25] MEDS ORDERED: MAGNESIUM CITRATE 300 ML BOTTLE PO PRN (22:05)
[2021-06-25] MEDS ORDERED: guaiFENesin 200 MG/10 ML 10 ML UNIT-DOSE CUPS PO PRN (22:05)
[2021-06-25] MEDS ORDERED: ONDANSETRON *ODT* 4 MG TABLET SL PRN (22:05)
[2021-06-25 22:32] VITALS: BMI 25.0
[2021-06-26] MEDS: hydrOXYzine PAMOATE 25 MG CAPSULE (FP) PO SCH ×5 (06:38→22:35)
[2021-06-26] MEDS ORDERED: LORazepam 1 MG TABLET PO PRN (10:19)
[2021-06-26] MEDS: METHOCARBAMOL 500 MG TABLET PO PRN ×2 (10:22→22:35)
[2021-06-26] MEDS: NICOTINE 14 MG/24 HOURS TOPICAL PATCH TD SCH (10:22)
[2021-06-26] MEDS: PRENATAL VITAMINS W/ FOLIC ACID TABLET (FP) PO SCH (10:22)
[2021-06-26] MEDS: LORazepam 2 MG TABLET PO SCH ×3 (11:40→22:36)
[2021-06-26] MEDS: amLODIPine BESYLATE 5 MG TABLET (FP) PO SCH (11:40)
[2021-06-26 13:33] LABS: ALBUMIN 3.4 g/dl (3.4-5.0); CALCIUM 8.3 mg/dL (8.5-10.1)
[2021-06-26 13:34] LABS: BLOOD UREA NITROGEN 16.8 mg/dL (7-18)
[2021-06-26 13:36] LABS: CREATININE 1.1 mg/dL (0.55-1.3)
[2021-06-26 13:38] LABS: BILIRUBIN,TOTAL 0.4 mg/dL (0.2-1); TOT PROT 6.5 g/dl (6.4-8.2)
[2021-06-26 13:44] LABS: HEMATOCRIT 45.1 % (35.4-49); MCH 31.6 pg (25.7-33.7); MCHC 33.3 g/dl (32.0-35.9); MEAN CELL VOLUME 94.8 fl (80-96); MEAN PLT VOLUME 8.7 fl (7.5-11.1); PLATELET COUNT 248 10^3/uL (134-434); RBC 4.75 M/mm3 (4.00-5.60); RDW 14.2 % (11.9-15.9); WHITE BLOOD COUNT 6.8 K/mm3 (4.0-10.0)
[2021-06-26] MEDS: THIAMINE HCL 100 MG TABLET (FP) PO SCH (22:35)
[2021-06-26] MEDS: MELATONIN 5 MG TABLETS PO SCH (22:35)
[2021-06-27] MEDS: LORazepam 2 MG TABLET PO SCH ×4 (06:10→22:33)
[2021-06-27] MEDS: hydrOXYzine PAMOATE 25 MG CAPSULE (FP) PO SCH ×5 (06:10→22:32)
[2021-06-27] MEDS: PRENATAL VITAMINS W/ FOLIC ACID TABLET (FP) PO SCH (10:41)
[2021-06-27] MEDS: amLODIPine BESYLATE 5 MG TABLET (FP) PO SCH (10:41)
[2021-06-27] MEDS: NICOTINE 14 MG/24 HOURS TOPICAL PATCH TD SCH (10:42)
[2021-06-27] MEDS: METHOCARBAMOL 500 MG TABLET PO PRN (18:14)
[2021-06-27] MEDS: MELATONIN 5 MG TABLETS PO SCH (22:32)
[2021-06-27] MEDS: THIAMINE HCL 100 MG TABLET (FP) PO SCH (22:33)
[2021-06-28] MEDS: LORazepam 1 MG TABLET PO SCH ×4 (06:01→22:50)
[2021-06-28] MEDS: hydrOXYzine PAMOATE 25 MG CAPSULE (FP) PO SCH ×5 (06:01→22:51)
[2021-06-28] MEDS: amLODIPine BESYLATE 5 MG TABLET (FP) PO SCH (10:38)
[2021-06-28] MEDS: METHOCARBAMOL 500 MG TABLET PO PRN (10:38)
[2021-06-28] MEDS: PRENATAL VITAMINS W/ FOLIC ACID TABLET (FP) PO SCH (10:38)
[2021-06-28] MEDS: NICOTINE 14 MG/24 HOURS TOPICAL PATCH TD SCH (10:40)
[2021-06-28] MEDS: MELATONIN 5 MG TABLETS PO SCH (22:51)
[2021-06-28] MEDS: THIAMINE HCL 100 MG TABLET (FP) PO SCH (22:51)
[2021-06-29] MEDS ORDERED: LORazepam 0.5 MG TABLET PO PRN
[2021-06-29] MEDS: LORazepam 0.5 MG TABLET PO SCH ×4 (06:14→22:22)
[2021-06-29] MEDS: hydrOXYzine PAMOATE 25 MG CAPSULE (FP) PO SCH ×5 (06:16→22:21)
[2021-06-29] MEDS: amLODIPine BESYLATE 10 MG TABLET (FP) PO SCH (10:17)
[2021-06-29] MEDS: METHOCARBAMOL 500 MG TABLET PO PRN (10:17)
[2021-06-29] MEDS: NICOTINE 14 MG/24 HOURS TOPICAL PATCH TD SCH (10:17)
[2021-06-29] MEDS: PRENATAL VITAMINS W/ FOLIC ACID TABLET (FP) PO SCH (10:17)
[2021-06-29] MEDS: MELATONIN 5 MG TABLETS PO SCH (22:20)
[2021-06-29] MEDS: THIAMINE HCL 100 MG TABLET (FP) PO SCH (22:21)
[2021-06-30] MEDS ORDERED: LORazepam 0.5 MG TABLET PO ONE (05:00)
[2021-06-30] MEDS: hydrOXYzine PAMOATE 25 MG CAPSULE (FP) PO SCH ×2 (05:40→10:29)
[2021-06-30 09:11] VITALS: BP 136/63; PULSE 63; TEMP 97.3
[2021-06-30] MEDS: PRENATAL VITAMINS W/ FOLIC ACID TABLET (FP) PO SCH (10:28)
[2021-06-30] MEDS: METHOCARBAMOL 500 MG TABLET PO PRN (10:28)
[2021-06-30] MEDS: amLODIPine BESYLATE 10 MG TABLET (FP) PO SCH (10:29)
[2021-06-30] MEDS: NICOTINE 14 MG/24 HOURS TOPICAL PATCH TD SCH (10:29)
== END 2021-06-30 11:15 | disposition home or self-care (01) | DRG 774 ==
LOC: YASAS 17:48 → Y6N 06-26 01:55
PROVIDERS: ADMIT Allergy & Immunology; ATTEND Allergy & Immunology
PROC: HZ2ZZZZ Detoxification Services for Substance Abuse Treatment (ICD-10-PCS; principal; 2021-06-26)
DX: F10.230 Alcohol dependence with withdrawal, uncomplicated (principal); F14.20 Cocaine dependence, uncomplicated; F12.20 Cannabis dependence, uncomplicated; F17.213 Nicotine dependence, cigarettes, with withdrawal; F19.282 Other psychoactive substance dependence with psychoactive substance-induced sleep disorder; F19.280 Other psychoactive substance dependence with psychoactive substance-induced anxiety disorder; F19.24 Other psychoactive substance dependence with psychoactive substance-induced mood disorder; F43.10 Post-traumatic stress disorder, unspecified; Z20.822 Contact with and (suspected) exposure to COVID-19; Z86.11 Personal history of tuberculosis; Z18.10 Retained metal fragments, unspecified
CPT/HCPCS: 36415; 71046-TC-FY; 80053; 82310; 82947; 85027; 86780; C9803; U0003; U0005

== ENCOUNTER 2021-08-05 09:40 | Inpatient (IN) | payer OTHER ==
[2021-08-05] MEDS ORDERED: MAGNESIUM HYDROX 2400MG/30ML ORAL SUSPENSION 30 ML CUP PO PRN (10:28)
[2021-08-05] MEDS ORDERED: MENTHOL/PHENOL 1 EACH UD MM PRN (10:28)
[2021-08-05] MEDS ORDERED: BISMUTH SUBSALICYLATE 524 MG/30 ML PO PRN (10:28)
[2021-08-05] MEDS ORDERED: ONDANSETRON *ODT* 4 MG TABLET SL PRN (10:28)
[2021-08-05] MEDS ORDERED: MAGNESIUM CITRATE 300 ML BOTTLE PO PRN (10:28)
[2021-08-05] MEDS ORDERED: IBUPROFEN 400 MG TABLET (FP) PO PRN (10:28)
[2021-08-05] MEDS ORDERED: chlordiazePOXIDE HCL 25 MG CAPSULE PO PRN (10:28)
[2021-08-05] MEDS ORDERED: LOPERAMIDE HCL 2 MG CAPSULE PO PRN (10:28)
[2021-08-05] MEDS ORDERED: ACETAMINOPHEN 325 MG TABLET (FP) PO PRN ×2 (10:28)
[2021-08-05] MEDS ORDERED: NICOTINE 10 MG CARTRIDGE (INHALER) IH PRN (10:28)
[2021-08-05] MEDS ORDERED: MAG HYDROX/AL HYDROX/SIMETH 30 ML UNIT-DOSE CUP PO PRN (10:28)
[2021-08-05 11:25] VITALS: BMI 25.2
[2021-08-05] MEDS: amLODIPine BESYLATE 10 MG TABLET (FP) PO SCH (12:03)
[2021-08-05] MEDS: chlordiazePOXIDE HCL 25 MG CAPSULE PO SCH ×3 (12:04→22:41)
[2021-08-05] MEDS: hydrOXYzine PAMOATE 25 MG CAPSULE (FP) PO SCH ×3 (15:29→22:41)
[2021-08-05 17:44] LABS: ALBUMIN 3.8 g/dl (3.4-5.0); BLOOD UREA NITROGEN 15.5 mg/dL (7-18)
[2021-08-05 17:45] LABS: CALCIUM 8.2 mg/dL (8.5-10.1)
[2021-08-05 17:47] LABS: CREATININE 1.3 mg/dL (0.55-1.3)
[2021-08-05 17:49] LABS: BILIRUBIN,TOTAL 0.4 mg/dL (0.2-1); TOT PROT 7.2 g/dl (6.4-8.2)
[2021-08-05 17:55] LABS: HEMATOCRIT 46.1 % (35.4-49); HEMOGLOBIN 15.4 GM/dL (11.7-16.9); MCH 31.1 pg (25.7-33.7); MCHC 33.4 g/dl (32.0-35.9); MEAN CELL VOLUME 93.2 fl (80-96); MEAN PLT VOLUME 8.3 fl (7.5-11.1); PLATELET COUNT 293 10^3/uL (134-434); RBC 4.95 M/mm3 (4.00-5.60); RDW 14.6 % (11.9-15.9); WHITE BLOOD COUNT 7.8 K/mm3 (4.0-10.0)
[2021-08-05] MEDS ORDERED: MELATONIN 5 MG TABLETS PO SCH (22:00)
[2021-08-05] MEDS: THIAMINE HCL 100 MG TABLET (FP) PO SCH (22:41)
[2021-08-05] MEDS: traZODone HCL 100 MG TABLET (FP) PO SCH (22:41)
[2021-08-06] MEDS: chlordiazePOXIDE HCL 25 MG CAPSULE PO SCH ×4 (05:50→22:31)
[2021-08-06] MEDS: hydrOXYzine PAMOATE 25 MG CAPSULE (FP) PO SCH ×5 (05:50→22:32)
[2021-08-06] MEDS: amLODIPine BESYLATE 10 MG TABLET (FP) PO SCH (10:34)
[2021-08-06] MEDS: PRENATAL VITAMINS W/ FOLIC ACID TABLET (FP) PO SCH (11:21)
[2021-08-06] MEDS: traZODone HCL 100 MG TABLET (FP) PO SCH (22:31)
[2021-08-06] MEDS: THIAMINE HCL 100 MG TABLET (FP) PO SCH (22:31)
[2021-08-07] MEDS: hydrOXYzine PAMOATE 25 MG CAPSULE (FP) PO SCH ×5 (05:07→22:30)
[2021-08-07] MEDS: chlordiazePOXIDE HCL 25 MG CAPSULE PO SCH ×4 (05:08→22:30)
[2021-08-07 07:07] LABS: SARS-CoV-2 NAA Not Detected (Not Detected)
[2021-08-07] MEDS: PRENATAL VITAMINS W/ FOLIC ACID TABLET (FP) PO SCH (10:30)
[2021-08-07] MEDS: amLODIPine BESYLATE 10 MG TABLET (FP) PO SCH (10:30)
[2021-08-07] MEDS: LISINOPRIL 10 MG TABLET PO SCH (15:13)
[2021-08-07] MEDS: THIAMINE HCL 100 MG TABLET (FP) PO SCH (22:30)
[2021-08-07] MEDS: traZODone HCL 100 MG TABLET (FP) PO SCH (22:30)
[2021-08-08] MEDS ORDERED: chlordiazePOXIDE HCL 10 MG CAPSULE PO PRN
[2021-08-08] MEDS: chlordiazePOXIDE HCL 10 MG CAPSULE PO SCH ×4 (06:19→23:32)
[2021-08-08] MEDS: hydrOXYzine PAMOATE 25 MG CAPSULE (FP) PO SCH ×5 (06:19→22:09)
[2021-08-08] MEDS: PRENATAL VITAMINS W/ FOLIC ACID TABLET (FP) PO SCH (11:05)
[2021-08-08] MEDS: amLODIPine BESYLATE 10 MG TABLET (FP) PO SCH (11:05)
[2021-08-08] MEDS: METHOCARBAMOL 500 MG TABLET PO PRN ×2 (11:05→19:23)
[2021-08-08] MEDS: LISINOPRIL 10 MG TABLET PO SCH (11:05)
[2021-08-08] MEDS: traZODone HCL 100 MG TABLET (FP) PO SCH (22:09)
[2021-08-08] MEDS: THIAMINE HCL 100 MG TABLET (FP) PO SCH (22:10)
[2021-08-09] MEDS: hydrOXYzine PAMOATE 25 MG CAPSULE (FP) PO SCH ×5 (06:15→22:20)
[2021-08-09] MEDS: chlordiazePOXIDE HCL 10 MG CAPSULE PO SCH ×2 (06:15→17:07)
[2021-08-09] MEDS: PRENATAL VITAMINS W/ FOLIC ACID TABLET (FP) PO SCH (10:50)
[2021-08-09] MEDS: amLODIPine BESYLATE 10 MG TABLET (FP) PO SCH (10:50)
[2021-08-09] MEDS: LISINOPRIL 10 MG TABLET PO SCH (10:50)
[2021-08-09] MEDS: METHOCARBAMOL 500 MG TABLET PO PRN (10:51)
[2021-08-09 21:24] VITALS: TEMP 97.8
[2021-08-09] MEDS: traZODone HCL 100 MG TABLET (FP) PO SCH (22:20)
[2021-08-09] MEDS: THIAMINE HCL 100 MG TABLET (FP) PO SCH (22:20)
[2021-08-10] MEDS ORDERED: chlordiazePOXIDE HCL 10 MG CAPSULE PO ONE (05:00)
[2021-08-10] MEDS: hydrOXYzine PAMOATE 25 MG CAPSULE (FP) PO SCH ×2 (06:02→10:39)
[2021-08-10 10:03] VITALS: BP 138/88; PULSE 69
[2021-08-10] MEDS: LISINOPRIL 10 MG TABLET PO SCH (10:39)
[2021-08-10] MEDS: PRENATAL VITAMINS W/ FOLIC ACID TABLET (FP) PO SCH (10:39)
[2021-08-10] MEDS: amLODIPine BESYLATE 10 MG TABLET (FP) PO SCH (10:39)
== END 2021-08-10 09:45 | disposition home or self-care (01) | DRG 774 ==
LOC: YASAS 09:40 → Y6N 11:27
PROVIDERS: ADMIT Allergy & Immunology; ATTEND Allergy & Immunology
PROC: HZ2ZZZZ Detoxification Services for Substance Abuse Treatment (ICD-10-PCS; principal; 2021-08-05)
DX: F10.230 Alcohol dependence with withdrawal, uncomplicated (principal); F14.20 Cocaine dependence, uncomplicated; F12.10 Cannabis abuse, uncomplicated; F17.210 Nicotine dependence, cigarettes, uncomplicated; F19.280 Other psychoactive substance dependence with psychoactive substance-induced anxiety disorder; F19.282 Other psychoactive substance dependence with psychoactive substance-induced sleep disorder; F43.10 Post-traumatic stress disorder, unspecified; F41.9 Anxiety disorder, unspecified; I10 Essential (primary) hypertension; M54.50 Low back pain, unspecified; G89.29 Other chronic pain; R73.9 Hyperglycemia, unspecified; Z86.11 Personal history of tuberculosis
CPT/HCPCS: 36415; 80053; 81025; 82962; 85027; 86780; 87811; C9803-CS; U0003; U0005